=== PATIENT | male | born 1945 | race Two or more races ===

== ENCOUNTER 2017-11-23 14:45 | Outpatient (CLI) | payer OTHER | END 2017-11-23 14:50 | disposition home or self-care (01) | LOC: RAD 14:45 | DX: M05.242 Rheumatoid vasculitis with rheumatoid arthritis of left hand (principal); M05.241 Rheumatoid vasculitis with rheumatoid arthritis of right hand ==

== ENCOUNTER 2017-12-01 08:47 | Outpatient (CLI) | payer OTHER | END 2017-12-01 09:30 | disposition home or self-care (01) | LOC: NUCLEAR 08:47 | DX: C83.08 Small cell B-cell lymphoma, lymph nodes of multiple sites (principal); C79.51 Secondary malignant neoplasm of bone | CPT/HCPCS: 78815; A9552 ==